=== PATIENT | female | born 1985 | race African-American/Black ===

== ENCOUNTER 2022-05-21 18:17 | Emergency (ER) | payer OTHER ==
[~2022-05-21] VITALS: Ht 170.2 cm; Wt 106.6 kg
[2022-05-21] MEDS ORDERED: SODIUM CHLORIDE 0.9% 1000ML 1,000 ML IV STA (18:48)
[2022-05-21 19:04] LABS: BASOPHILS # (AUTO) 0.1 (0.0-0.1); EOSINOPHILS # (AUTO) 0.1 (0.0-0.4); EOSINOPHILS % 0.6 % (0.0-6.0); HEMATOCRIT 38.8 % (34.2-44.1); HEMOGLOBIN 12.5 g/dL (12.0-16.0); LYMPHOCYTES # (AUTO) 2.6 (1.0-3.2); LYMPHOCYTES % 25.8 % (18.0-39.1); MEAN CORPUSCULAR HEMOGLOBIN 28.2 pg (28-32); MEAN CORPUSCULAR HGB CONC 32.2 g/dL (31-35); MEAN CORPUSCULAR VOLUME 87.6 fL (81-99); MONOCYTES # (AUTO) 0.6 (0.2-0.8); NEUTROPHILS # (AUTO) 6.8 (2.1-6.9); NEUTROPHILS % 65.9 % (38.7-80.0); PLATELET COUNT 1745 x10e3/uL (140-360); RED BLOOD COUNT 4.43 x10e6/uL (3.6-5.1); RED CELL DISTRIBUTION WIDTH 14.6 % (11.7-14.4)
[2022-05-21 19:06] LABS: CLARITY,URINE SL CLOUDY (CLEAR); COLOR,URINE YELLOW (YELLOW); KETONES,URINE NEGATIVE (NEGATIVE); LEUKOCYTE ESTERASE ,URINE NEGATIVE (NEGATIVE); NITRITE,URINE NEGATIVE (NEGATIVE); PROTEIN,URINE DIPSTICK NEGATIVE (NEGATIVE)
[2022-05-21 19:07] LABS: URINE UROBILINOGEN 0.2 mg/dL (0.2 - 1)
[2022-05-21 19:10] LABS: AMPHETAMINES SCREEN,URINE NEGATIVE (NEGATIVE); BENZODIAZEPINES SCREEN,URINE NEGATIVE (NEGATIVE); PHENCYCLIDINE SCREEN,URINE NEGATIVE (NEGATIVE)
[2022-05-21 19:20] LABS: BACTERIA,URINE MODERATE /HPF; EPITHELIAL CELLS,URINE MODERATE /LPF
[2022-05-21 19:30] LABS: ALBUMIN 4.2 g/dL (3.5-5.0); ANION GAP 13.9 mmol/L (8-16); CALCIUM 9.1 mg/dL (8.4-10.2); CREATININE, SERUM 0.83 mg/dL (0.57-1.11); POTASSIUM 3.9 mmol/L (3.5-5.1)
[2022-05-21 19:51] LABS: PLATELET ESTIMATE MARKEDLY INCREASED; PLATELET MORPHOLOGY COMMENT FEW GIANT; RBC MORPHOLOGY COMMENT NORMAL
[2022-05-21] MEDS ORDERED: IOPAMIDOL 370 MG/ML 100 ML INFUS..BTL INJ ONE (20:55)
[2022-05-21] MEDS ORDERED: TRAMADOL HCL 50 MG TAB PO STA (21:07)
[2022-05-21] MEDS ORDERED: HYDROCODON-ACE1 EA11 PO (21:37)
== END 2022-05-21 21:40 | disposition home or self-care (01) ==
LOC: ER 18:45
DX: R10.12 Left upper quadrant pain (principal); D25.9 Leiomyoma of uterus, unspecified; J90 Pleural effusion, not elsewhere classified; D75.839 Thrombocytosis, unspecified
CPT/HCPCS: 36415; 74177; 80053; 80307; 81001; 81025; 83690; 85025; 99284; Q9967